=== PATIENT | male | born 1955 | race Caucasian/White ===

== ENCOUNTER 2022-02-03 15:08 | Outpatient (CLI) | payer BC | END 2022-02-03 15:09 | disposition home or self-care (01) | LOC: SCSMRI 15:08 | PROVIDERS: ATTEND Orthopaedic Surgery | DX: M23.204 Derangement of unspecified medial meniscus due to old tear or injury, left knee (principal); M65.862 Other synovitis and tenosynovitis, left lower leg; M25.462 Effusion, left knee ==